=== PATIENT | female | born 1945 | race Caucasian/White ===

== ENCOUNTER → 2017-05-29 13:36 | Outpatient (CLI) | payer MEDICARE, SELFPAY ==
--- NOTE | 2017-05-29 | XR_ITS ---
Left foot Weightbearing Foot 3 Views HISTORY: ITS.REASON: LEFT FOOT PAIN ORDERING PHYSICIAN: Gabino Koo MD PATIENT AGE: 72 years COMPARISON: 09/26/2013 FINDINGS: Mild osteoarthritic changes are present at the first metatarsophalangeal joint with mild osteophyte formation. No fracture or dislocation. No lytic or blastic change. Normal alignment. IMPRESSION: Mild osteoarthritis of the first metatarsophalangeal joint otherwise negative foot with no significant change
== END ==
PROVIDERS: PCP Internal Medicine Adolescent Medicine; Visit Provider Internal Medicine Adolescent Medicine
DX: M79.672 Pain in left foot (principal)
CPT/HCPCS: 73630

== ENCOUNTER → 2017-10-04 06:42 | Outpatient (CLI) | payer MEDICARE, SELFPAY ==
--- NOTE | 2017-10-04 06:43 | CA_ITS ---
PROCEDURE: 2-D M-mode and color Doppler study INDICATIONS FOR THE TEST: Chest pain COPD Heart Murmur Tobacco Smoking Palpitations+ Fatigue Syncope Edema Hypertension+Diabetes Mellitus Rheumatic Fever SOB+ENRIQUEZ Obesity Hyperlipidemia+ Family History HD Additional History ABN EKG, BREAST CA PATIENT INFORMATION HEIGHT: 62 WEIGHT:112 GENDER: Female B/P:145/85 2-D/M-MODE INTERPRETATION: 2-D MEASUREMENTS OBSERVED VALUES IN CMS Right Ventricular Dimension (RVDd) 2.1 Interventricular Septum (Thickness)(IVsd) 1.1 Left Ventricular Internal Dimensions(LVIDd) 5.1 Left Ventricular Posterior Wall (Thickness)(LVPWd) 0.9 Aortic Root 3.2 Aortic Cusp Separation 1.9 Left Atrial Dimensions (LAD) 3.9 2D 1. Left atrium is mildly enlarged, left ventricle is normal size, left ventricle wall thickness is upper limit of the normal, there is preserved left ventricular systolic function, visually estimated ejection fraction 55% with no obvious regional wall motion abnormality. 2. The right atrium and right ventricle are normal size and contractility. 3. The aortic valve is minimally thickened and fibrosed. 4. The mitral and tricuspid valve are grossly normal. 5. The pulmonic valve is poorly visualized. 6. No significant pericardial effusion noted. DOPPLER INTERROGATION: Doppler interrogation of the aortic, mitral and tricuspid valvular presence of mild mitral and tricuspid regurgitation, tricuspid regurgitation jet velocity is insufficient for calculation of the right ventricular systolic pressure, diastolic parameters are inconclusive. Trace aortic insufficiency seen CONCLUSION: 1. Mildly enlarged left atrium, normal left ventricular size, visually estimated ejection fraction 55% with no obvious regional wall motion abnormality. Diastolic parameters are inconclusive. 2. Trace aortic, mild mitral and tricuspid regurgitation 3. No significant pericardial effusion noted.
--- NOTE | 2017-10-04 06:43 | NM_ITS ---
History and Indications: Coronary artery disease, hypertension, hyperlipidemia, family history, chest pain and shortness of breath. Procedure: Patient received a 0.4 mg of Lexiscan, resting heart rate was 60 bpm, resting blood pressure 185/99 scan maximum heart rate achieved was 91 bpm just less than 85% of the maximum predicted heart rate and a blood pressure was 142/85. With Lexiscan patient, shortness of breath. Electrocardiogram: Resting electrocardiogram showed sinus rhythm nonspecific ST-T changes, with Lexiscan would 0.[address] segment depression noted from the baseline EKG. The EKG portion of the Lexiscan Myoview is nondiagnostic secondary to baseline abnormal EKG. Cardiac stress and resting SPECT images: Cardiac stress and rest SPECT images were obtained using technetium 99 Myoview 30.7 mCi at stress and 10.4 mCi at rest. Gated SPECT further analysis of segmental wall motion and calculation of the ejection fraction also done. Cardiac stress and rest images show a mild reversible defect in the septal area with normal perfusion of the apex is likely secondary to soft tissue attenuation, rather than myocardial ischemia, computer derived ejection fraction is 55% with no obvious regional wall motion abnormality, right ventricle is normal size and contractility. Conclusion: 1. The EKG portion of the Lexiscan Myoview is nondiagnostic. 2. Mild reversible defect seen in the septal area likely secondary to soft tissue attenuation, computer derived ejection fraction is 55% with no obvious regional wall motion abnormality, right ventricle is normal size and contractility.
--- NOTE | 2017-10-04 07:10 | HMH.ITSHM ---
METOPROLOL RANEXA LOSARTAN PROTONIX ARIMIDEX LEXAPRO ALENDRONATE SODIUM ROSUVASTATIN ASA CETIRIZINE PRESERVISION CITRACAL CENTRUM
--- NOTE | 2017-10-04 09:57 | HMH.ITSHM ---
metoprolol ranexa losartan protonix arimidex lexapro alendronate sodium rosuvastatin aspirin ceterizine preservision citracil centrum
== END ==
PROVIDERS: Family Provider Internal Medicine Adolescent Medicine; PCP Internal Medicine Adolescent Medicine; Visit Provider Internal Medicine Cardiovascular Disease
DX: R94.31 Abnormal electrocardiogram [ECG] [EKG] (principal); R06.00 Dyspnea, unspecified
CPT/HCPCS: 78452; 93017; 93306; A9502; J2785

== ENCOUNTER → 2017-10-09 14:29 | Outpatient (CLI) | payer MEDICARE, SELFPAY | PROVIDERS: PCP Internal Medicine Adolescent Medicine; Visit Provider Internal Medicine Cardiovascular Disease | DX: R94.39 Abnormal result of other cardiovascular function study (principal); R06.83 Snoring; R53.83 Other fatigue; R06.00 Dyspnea, unspecified; I10 Essential (primary) hypertension; E78.5 Hyperlipidemia, unspecified; G47.33 Obstructive sleep apnea (adult) (pediatric) | CPT/HCPCS: G0399 ==

== ENCOUNTER → 2017-10-12 12:16 | Outpatient (CLI) | payer MEDICARE, SELFPAY ==
--- NOTE | 2017-10-12 12:19 | CI_ITS ---
Cerebrovascular Exam Indications: 780.4 Dizziness and giddiness. IMPRESSIONS 1. The bilateral vertebral arteries are patent with normal antegrade flow. 2. Study suggests less than 20% stenosis involving the right internal carotid artery. 3. Study suggests 20-49% stenosis involving the left internal carotid artery. 4. Tortuous carotid arteries seen bilaterally. Carotid duplex study. Complete study and Doppler flow study including spectral analysis, color and reyes scale imaging. Height: Height: 157.5cm. Height: 62in. Weight: Weight: 50.8kg. Weight: 111.8lb. Body mass index: BMI: 20.5kg/m^2. Body surface area: BSA: 1.49m^2. Location: Vascular laboratory. Patient status: Outpatient. Tables: Arterial flow: + +--------+--------+ Location V syrandy V ed + +--------+--------+ Right CCA - proximal 69.1cm/s 14.9cm/s + +--------+--------+ Right CCA - distal 81.7cm/s 25.9cm/s + +--------+--------+ Right ECA 45.7cm/s -------- + +--------+--------+ Right ICA - proximal 79.5cm/s 29cm/s + +--------+--------+ Right ICA - mid 50.2cm/s 21.9cm/s + +--------+--------+ Right ICA - distal 39.9cm/s 19.1cm/s + +--------+--------+ Right vertebral 30.7cm/s -------- + +--------+--------+ Left CCA - proximal 62.4cm/s 19.2cm/s + +--------+--------+ Left CCA - distal 67.3cm/s 22.6cm/s + +--------+--------+ Left ECA 53cm/s -------- + +--------+--------+ Left ICA - proximal 47.6cm/s 22.1cm/s + +--------+--------+ Left ICA - mid 63.6cm/s 28.6cm/s + +--------+--------+ Left ICA - distal 72.8cm/s 27.2cm/s + +--------+--------+ Left vertebral 39.3cm/s -------- + +--------+--------+ Velocity ratios: + + + + + + Right, V sys Right, V ed Left, V sys Left, V ed + + + + + + Max ICA/dist CCA 0.97 1.12 1.08 1.27 + + + + + + (Report amended ) Electronically signed by: Bhavik Cho [id number]
== END ==
PROVIDERS: PCP Internal Medicine Adolescent Medicine; Visit Provider Internal Medicine Cardiovascular Disease
DX: R42 Dizziness and giddiness (principal)
CPT/HCPCS: 93880

== ENCOUNTER → 2017-11-17 12:06 | Outpatient (CLI) | payer MEDICARE, SELFPAY ==
--- NOTE | 2017-11-17 12:14 | XR_ITS ---
XR ankle RT min 3V HISTORY: Fall with pain and swelling ITS.REASON: ANKLE PAIN/SPRAIN ORDERING PHYSICIAN: Gabino Koo MD PATIENT AGE: 72 years Comparison: None FINDINGS: Soft tissue swelling is present laterally. There is a faint transverse lucency involving the tip of the lateral malleolus consistent with a nondisplaced fracture. No other significant anomalies are evident. IMPRESSION: Nondisplaced fracture at the tip of the lateral malleolus
--- NOTE | 2017-11-17 12:14 | XR_ITS ---
XR shoulder RT min 2V HISTORY: ITS.REASON: PAIN ANTERIOR SHOULDER ORDERING PHYSICIAN: Gabino Koo MD PATIENT AGE: 72 years Comparison: None FINDINGS: No acute fracture or dislocation is evident. There is subacromial stenosis with some hypertrophic changes along the inferior aspect of the acromion. Mild osteoarthritic change of the glenohumeral joint. IMPRESSION: No acute finding. Osteoarthritic change with subacromial stenosis
== END ==
PROVIDERS: PCP Internal Medicine Adolescent Medicine; Visit Provider Internal Medicine Adolescent Medicine
DX: S93.401A Sprain of unspecified ligament of right ankle, initial encounter (principal); M25.511 Pain in right shoulder
CPT/HCPCS: 73030; 73610

== ENCOUNTER → 2017-11-23 13:51 | Outpatient (CLI) | payer MEDICARE, SELFPAY ==
--- NOTE | 2017-11-23 13:53 | XR_ITS ---
XR foot RT min 3V HISTORY: ITS.REASON: right foot pain/ swelling ORDERING PHYSICIAN: Zeyad Rivera MD PATIENT AGE: 72 years COMPARISON: None FINDINGS: Mild Hallux valgus with overlying soft tissue swelling and bunion formation of the first metatarsal. No fracture or dislocation. No lytic or blastic change. No significant arthritic change. IMPRESSION: Mild hallux valgus with bunion formation at the first MTP distally and overlying soft tissue swelling
== END ==
PROVIDERS: PCP Internal Medicine Adolescent Medicine; Visit Provider Orthopaedic Surgery
DX: M79.671 Pain in right foot (principal)
CPT/HCPCS: 73630

== ENCOUNTER → 2017-12-12 09:26 | Outpatient (CLI) | payer MEDICARE, SELFPAY ==
--- NOTE | 2017-12-12 09:49 | XR_ITS ---
XR ankle RT min 3V HISTORY: Follow-up fracture ITS.REASON: rt lateral malleolus fx/ out of cam walker ORDERING PHYSICIAN: Zeyad Rivera MD PATIENT AGE: 72 years Comparison: 11/17/2017 FINDINGS: Previously noted soft tissue swelling at the lateral malleolus as improved. Avulsion fractures tip of lateral malleolus once again noted unchanged. No other significant anomalies evident. IMPRESSION: No change avulsion fractures of the lateral malleolus with decrease in soft tissue swelling
== END ==
PROVIDERS: PCP Internal Medicine Adolescent Medicine; Visit Provider Orthopaedic Surgery
DX: S82.61XA Displaced fracture of lateral malleolus of right fibula, initial encounter for closed fracture (principal)
CPT/HCPCS: 73610

== ENCOUNTER → 2018-07-03 09:13 | Outpatient (CLI) | payer MEDICARE, SELFPAY ==
--- NOTE | 2018-07-03 09:56 | XR_ITS ---
XR wrist RT min 3V HISTORY pain following injury ITS.REASON: FALL ORDERING PHYSICIAN: Gabino Koo MD PATIENT AGE: 73 years Comparison: None FINDINGS: There are mild osteoarthritic changes of the first and second metacarpal carpal joint. A small calcific density is present along the dorsal aspect of the wrist consistent with an avulsion of the triquetrum. Faint lucency is present at the distal shaft of the ulna. This is a question clinical significance. Consider follow-up to confirm stability. IMPRESSION: Avulsion fracture of the triquetrum
--- NOTE | 2018-07-03 09:56 | XR_ITS ---
XR hand RT min 3V HISTORY: Pain following injury ITS.REASON: FALL ORDERING PHYSICIAN: Gabino Koo MD PATIENT AGE: 73 years COMPARISON: None FINDINGS: No fracture or dislocation. Mild osteoarthritic changes of the first and second metacarpal carpal joint. IMPRESSION: No acute finding
== END ==
PROVIDERS: PCP Internal Medicine Adolescent Medicine; Visit Provider Internal Medicine Adolescent Medicine
DX: M79.641 Pain in right hand (principal); M25.531 Pain in right wrist
CPT/HCPCS: 73110; 73130

== ENCOUNTER → 2018-10-26 12:47 | Outpatient (CLI) | payer MEDICARE, SELFPAY ==
--- NOTE | 2018-10-26 12:49 | MR_ITS ---
PROCEDURE: MR KNEE LT WO CON CLINICAL INDICATION: POSTERIOR KNEE PAIN Left knee pain with limited range of motion COMPARISON: No exams were available for comparison TECHNIQUE: Routine multiplanar multi echo sequences are performed without contrast FINDINGS: The cruciate ligaments, collateral ligaments, patellar tendon, and quadriceps tendon appear intact. There is a horizontal tear of the posterior horn of the medial meniscus with some meniscal maceration. The lateral meniscus has an unremarkable appearance. There are mild osteoarthritic changes involving all 3 compartments. The medial meniscus is somewhat extruded medially with loss of the medial joint space. There is a moderate size knee joint effusion mainly in the suprapatellar region. The patellar cartilage is preserved. No obvious bone bruise or bone marrow edema. IMPRESSION: Horizontal tear involves the posterior horn of the medial meniscus with mild meniscal maceration and mild osteoarthritic change with moderate-sized knee joint effusion Dictated by: Bhavik Cho MD 10/28/2018 12:37 Electronically signed by Bhavik Cho MD in [place] 10/28/2018 12:37
== END ==
PROVIDERS: PCP Internal Medicine Adolescent Medicine; Visit Provider Internal Medicine Adolescent Medicine
DX: M25.562 Pain in left knee (principal)
CPT/HCPCS: 73721

== ENCOUNTER 2018-11-07 13:05 | Outpatient (RCR) | payer MEDICARE, SELFPAY | END 2018-11-07 13:10 | disposition home or self-care (01) | LOC: PT 13:05 | PROVIDERS: Visit Provider Internal Medicine Adolescent Medicine | DX: M12.811 Other specific arthropathies, not elsewhere classified, right shoulder (principal); M25.511 Pain in right shoulder | CPT/HCPCS: 97010; 97014; 97033; 97035; 97110; 97163; G0283 ==

== ENCOUNTER 2018-11-07 14:00 | Outpatient (RCR) | payer MEDICARE, SELFPAY ==
--- NOTE | 2018-10-25 09:48 | HMH.PTOPEV ---
PT Outpatient Evaluation Rehab PT Outpatient Evaluation Start: 10/25/18 09:21 Freq: Status: Active Protocol: Document 10/25/18 09:26 FERNANDO (Rec: 10/25/18 09:48 WILFREDELOISE [id number]) Electronically Signed By Brendan Hummel, PT 10/25/18 09:26 Outpatient Therapy Subjective History Subjective History Patient is a 73 year old female presenting to outpatient PT with report of L posterolateral knee pain starting approximately 6 weeks ago of insidious onset. No recent diagnostics for the L knee to report. Pt reports radiating pain to L giraldo area. Hx of recent cardiac ablasion and breast cancer. No other comorbidities to report. Chief Complaint Pain Symptom Type Ache,Dull Symptoms Relieved By Rest/Positioning,Ice,OTC Meds Symptoms Aggravated By Standing,Physical Activity, Walking Prior Functional Limitations None Current Functional Limitations Housework,Standing,Squatting, Recreation Activity,Walking, Stairs Symptom Description Constant but Variable Level of pain today (0-10) 3 Pain scale - at its best (0-10) 2 Pain scale - at its worst (0-10) 6 Hip/Knee Eval Gait Observation General Gait Pattern Observation Decrease Weight Bear (L) Assistive Device Assistive Devices None / NA Palpation Tenderness left Knee Palpation Finding Tenderness Knee Palpation Overall Comment lateral joint line, posterlater knee 3/4 MMT Hip Flexion Strength Grade 4 Good Hip Abduction Strength Grade 4- Good- Hip Adduction Strength Grade 4- Good- Hip Extension Strength Grade 4- Good- Hip External Rotation Strength Grade 3+ Fair+ Hip Internal Rotation Strength Grade 3+ Fair+ Knee Extension Strength Grade 4 Good Knee Flexion Strength Grade 4 Good ROM Hip ROM Reason Not Measured Within Functional Limits Knee Extension Active Range of Motion ( -5 degrees) Knee Flexion Active Range of Motion ( 125 degrees) Special Tests Knee Anterior Drawer Test Negative Left Knee Acosta Test Positive Left Knee Anterior Jose Test Negative Left Knee Valgus Stress Test Negative Left Knee Varus Stress Test Negative Left Knee Rachel Test Negative Left Outpatient Therapy Assessment Impairments Problems/Impairmment
== END 2018-11-07 14:05 | disposition home or self-care (01) ==
LOC: PT 14:00
PROVIDERS: PCP Internal Medicine Adolescent Medicine; Visit Provider Internal Medicine Adolescent Medicine
DX: S86.892A Other injury of other muscle(s) and tendon(s) at lower leg level, left leg, initial encounter (principal); M25.562 Pain in left knee
CPT/HCPCS: 97010; 97014; 97033; 97035; 97110; 97163; G0283

== ENCOUNTER 2019-11-14 14:40 | Emergency (ER) | payer MEDICARE, SELFPAY ==
[2019-11-14 14:55] VITALS: BP 134/80; PULSE 79; RESP 16; TEMP 37.2; O2SAT 98; BMI 21.2
--- NOTE | 2019-11-14 15:04 | CT_ITS ---
PROCEDURE: CT HEAD/BRAIN WO CON CLINICAL INDICATION: DIZZINESS Dizziness and headache, ringing in right ear COMPARISON: No exams were available for comparison TECHNIQUE: Axial images obtained. All CT scans at the facility use one or more dose reduction, viz: automated exposure control, ma/kV adjustment per patient size (including targeted exams where dose is matched to indication, i.e. head), or iterative reconstruction technique. FINDINGS: No midline shift, mass effect, intracranial hemorrhage, hydrocephalus, or extra-axial fluid collection is evident. The calvarium has an unremarkable appearance. No mastoid effusion. No sinus air-fluid level. IMPRESSION: No acute intracranial finding Dictated by: Bhavik Cho MD 11/14/2019 15:53 Bhavik Cho MD in [place] 11/14/2019 15:53
--- NOTE | 2019-11-14 15:05 | CT_ITS ---
PROCEDURE: CT CHEST WO CON CLINICAL INDICATION: DIZZINESS COMPARISON: No exams were available for comparison TECHNIQUE: Axial images obtained with sagittal and coronal reformats. All CT scans at the facility use one or more dose reduction, viz: automated exposure control, ma/kV adjustment per patient size (including targeted exams where dose is matched to indication, i.e. head), or iterative reconstruction technique. FINDINGS: HEART AND MEDIASTINAL STRUCTURES: There are coronary artery calcifications. The heart size is normal. There is mild nonspecific thickening of the distal esophagus. LUNGS AND PLEURAL SPACES: There are atelectatic or fibrotic changes in the right upper lobe medially. A noncalcified 5 mm nodules present in the right lower lobe. There is some mild pleural thickening in the right posterior hemithorax nonspecific. 3 mm noncalcified nodules present in the central aspect of the right upper lobe there is a calcified granuloma in the left lower lobe. Atelectatic or fibrotic changes are present in the left lung base. An irregular opacity is present in the left upper lobe anteriorly possibly due to an area of scarring at 8 mm. Multiple surgical clips are present in the left axilla with postsurgical changes. BONY STRUCTURES: No acute bony abnormalities apparent. UPPER ABDOMEN: Unremarkable. ADDITIONAL FINDINGS: No other significant abnormalities. IMPRESSION: 1. No acute finding. 2. Nonspecific 5 mm right lower lobe nodule, 3 mm right upper lobe nodule and 8 mm nodular opacity in the left upper lobe. Recommend six-month follow-up. 3. Coronary artery calcifications Dictated by: Bhavik Cho MD 11/14/2019 16:11 Bhavik Cho MD in [place] 11/14/2019 16:11
--- NOTE | 2019-11-14 15:06 | CT_ITS ---
PROCEDURE: CT CERVICAL SPINE WO CON CLINICAL INDICATION: DIZZINESS Dizziness, headache, pain COMPARISON: No exams were available for comparison TECHNIQUE: Axial images obtained with sagittal and coronal reformats. All CT scans at the facility use one or more dose reduction, viz: automated exposure control, ma/kV adjustment per patient size (including targeted exams where dose is matched to indication, i.e. head), or iterative reconstruction technique. Axial spiral CT scanning performed of the cervical spine beginning at the base of the skull and continuing to the upper T-spine. 3-D multiplanar reconstruction with 3-D manipulation of volumetric data set in image rendering was completed by the radiologist and/or technologist with the supervision of the radiologist on independent workstation. FINDINGS: There is slight reversal of the cervical lordosis. Klippel-Feil deformity is present with fusion of C2-C3. C3-C4: Degenerative disc disease with mild endplate hypertrophic change and mild left lateral recess and foraminal narrowing. C4-C5: Mild left-sided uncovertebral hypertrophy with mild left foraminal narrowing. C5-C6: Degenerate disc disease with endplate hypertrophic change with bilateral foraminal narrowing left greater than right and minimal endplate hypertrophic change. C6-C7: Degenerate disc disease with bilateral foraminal narrowing right greater than left with endplate hypertrophic change. C7-T1: Unremarkable. Scattered small nodes are present in the neck. Lung apices are clear. IMPRESSION: Multilevel cervical spondylosis as detailed above. Klippel-Feil deformity C2-C3 Dictated by: Bhavik Cho MD 11/14/2019 15:56 Bhavik Cho MD in [place] 11/14/2019 15:56
--- NOTE | 2019-11-14 15:14 | ECG_ITS ---
APPROVED REPORT Exam: Resting ECG HR:74 bpm ECG Measurements Heart Rate 74 AXES FL 162 P 72 QRSd 88 QRS 27 QT 410 T -3 QTc 455 <Conclusion> Normal sinus rhythm Nonspecific ST abnormality Abnormal ECG Electronically signed by : Gabino Koo, 11/16/2019 06:27:11
[2019-11-14 15:27] LABS: Basophils % 0.1 % (0.1-2.0); Eosinophils # 0.1 K/mm3 (0.0-0.4); Eosinophils % 1.1 % (0.1-12.0); Hematocrit 39.4 % (37.0-47.0); Hemoglobin 13.4 g/dL (12.2-16.2); Lymphocytes # 0.9 K/mm3 (0.7-4.5); Lymphocytes % 20.6 % (10-50); Mean Corpuscular Volume 88.2 fl (81-99); Mean Platelet Volume 8.4 fl (7.4-10.4); Monocytes # 0.3 K/mm3 (0.1-1.0); Monocytes % 7.3 % (1.7-9.3); Neutrophils # 3.2 K/mm3 (1.8-7.8); Neutrophils % 70.9 % (37.0-80.0); Platelet Count 158 K/mm3 (142-424); Red Blood Count 4.47 M/mm3 (4.20-5.40); Red Cell Distribution Width 12.3 % (11.5-17.5); White Blood Count 4.5 K/mm3 (4.8-10.8)
[2019-11-14 15:28] LABS: Chloride 101 mmol/L (98-107)
[2019-11-14 15:29] LABS: Potassium 3.5 mmoL/L (3.5-5.1); Sodium 139 mmol/L (136-145)
[2019-11-14 15:32] LABS: Anion Gap 13.5 mEq/L (5-15); Blood Urea Nitrogen 14 mg/dl (7-17); Carbon Dioxide 28 mmol/L (22.0-30.0); Creatinine Clearance Estimated 41 mL/min (50-200); Estimated Glomerular Filt Rate 121 ml/min (>60); GFR (African American) 146 ML/MIN (>60); Glucose 103 mg/dl (74-100)
[2019-11-14 15:43] LABS: NT Pro Brain Natriuretic Pep. 65.7 pg/mL (0-125)
[2019-11-14 15:46] LABS: Microscopic, Urine URINE MICROSCOPIC (MICROSCOPIC)
[2019-11-14 15:48] LABS: Appearance,Urine CLEAR (Clear); Bilirubin,Urine Negative (Negative); Blood, Urine TRACE-I (Negative); Color,Urine YELLOW (Yellow); Glucose,Urine (UA) Negative (Negative); Ketones,Urine Negative (Negative); Leukocyte Esterase,Urine Negative (Negative); Nitrate,Urine Negative (Negative); PH,Urine 7.5 (5.0-8.5); Protein,Urine Negative (Negative); Specific Gravity, Urine 1.015 (1.005-1.030); Urobilinogen,Urine 0.2 EU/dl (0.2)
[2019-11-14 15:48] LABS: Troponin I < 0.01 ng/ml (0.00-0.034)
[2019-11-14 15:49] LABS: Erythrocyte Sedimentation Rate 10 mm/hr (0-30)
[2019-11-14 16:01] LABS: Bilirubin,Indirect 0.7 mg/dL (0.0-0.9); Bilirubin,Total 0.7 mg/dl (0.2-1.3); Bilirubin,Unconjugated 0.7 mg/dL (0.0-1.1)
[2019-11-14 16:02] LABS: Alanine Aminotransferase 23 U/L (12-78); Albumin Level 4.5 g/dl (3.5-5.0); Alkaline Phosphatase 39 U/L (38-126); Aspartate Amino Transferase 35 U/L (14-36); Total Protein,Serum 6.9 g/dl (6.3-8.2)
[2019-11-14 16:06] LABS: C-Reactive Protein 0.4 mg/L (0-4)
[2019-11-14 16:17] LABS: Bacteria,Urine Trace /lpf; WBC,Urine Occasional #/hpf (0-3)
[2019-11-14 16:36] VITALS: BP 123/84; PULSE 66
--- NOTE | 2019-11-14 17:23 | HMH.EDGENADL ---
ED Disposition Clinical Impression: Tinnitus aurium, Klippel-Feil syndrome Disposition: Home, Self-Care Condition on Discharge: Good Instructions: Dizziness, Nonvertigo Referrals: Gabino Koo MD [Primary Care Provider] - - Critical Care Critical Care Time: No Attestation: On 11/14/19, the high probability of a clinically significant, sudden or life threatening deterioration of the following system(s) required my full and direct attention, intervention and personal management. The time I documented below is in addition to time spent performing reported procedures but includes the following listed in this critical care notation. Medical Decision Making - Medical Records Medical records reviewed: Yes: I reviewed the patient's medical records. - Jose Inquiry Pt receiving controlled substance: No Vital Signs: 11/14/19 14:55 11/14/19 16:36 Temperature 99 F Temperature Source Oral Pulse Rate [Radial] 79 66 Respiratory Rate 16 Blood Pressure [Right Arm] 134/80 123/84 Blood Pressure Mean [Right Arm] 98 97 Blood Pressure Position [Right Arm] Sitting 02 Sat by Pulse Oximetry 98 Oxygen Delivery Method Room Air - Lab Data Lab results reviewed: Yes: I reviewed the patient's lab results. Lab Results 11/14/19 15:10: WBC 4.5 L, RBC 4.47, Hgb 13.4, Hct 39.4, MCV 88.2, MCH 30.0, MCHC 34.0, RDW 12.3, Plt Count 158, MPV 8.4, Neut % (Auto) 70.9, Lymph % (Auto) 20.6, Maury % (Auto) 7.3, Eos % (Auto) 1.1, Baso % (Auto) 0.1, Neut # (Auto) 3.2, Lymph # (Auto) 0.9, Maury # (Auto) 0.3, Eos # (Auto) 0.1, Baso # (Auto) 0.0 11/14/19 15:10: Sodium 139, Potassium 3.5, Chloride 101, Carbon Dioxide 28, Anion Gap 13.5, BUN 14, Creatinine 0.50 L, Estimated Creat Clear 41, Estimated GFR 121, Est GFR ( Amer) 146, Glucose 103 H, Calcium 10.0, Troponin I < 0.01 11/14/19 15:10: C-Reactive Protein 0.4, NT-Pro-B Natriuret Pep 65.7 09/24/20 15:10: ESR 10 11/14/19 15:10: Total Bilirubin 0.7, Direct Bilirubin 0.0, Conjugated Bilirubin 0.0, Indirect Bilirubin 0.7, Unconjugated Bilirubin 0.7, AST 35, ALT 23, Alkaline Phosphatase 39, Total Protein 6.9, Albumin 4.5 11/14/19 15:16: Urine Color Yellow, Urine Appearance Clear, Urine pH 7.5, Ur Specific [place] 1.015, Urine Protein Negative, Urine Glucose (UA) Negative, Urine Ketones Negative, Urine Blood Trace-i, Urine Nitrate Negative, Urine Bilirubin Negative, Urine Urobilinogen 0.2, Ur Leukocyte Esterase Negative, Urine WBC Occasional, Urine Bacteria Trace Result diagrams: 11/14/19 15:10 11/14/19 15:10 Orders (Tests/Meds): ORDERS Category Date Time Status Troponin I Q3H Lab 11/14/19 18:15 Ordered Troponin I Q3H Lab 11/14/19 21:15 Ordered - CT Data CT Scan: Head, C-Spine Time Received: 17:[address] Reviewed: Yes: I have reviewed the patient's CT results Preliminary Findings: Abnormal (Head CT is normal CT of cervical spine she has 2 fused vertebrae's.) General Adult HPI - General Chief complaint: Dizziness Stated complaint: SOA dizzy tingling under left arm Time Seen by Provider: 11/14/19 17:00 Mode of Arrival: Ambulatory Source of Information: Patient Limitations: No Limitations Description of Symptoms (Recalled from ER Triage Doc. by RN): TO ED PER [employer] CAR WITH MULTIPLE C/O STATES X 3.5 WEEKS SHE HAS HAD INTERMITTENT EPISODES OF DIZZINESS, WORSE WHEN SHE BENDS OVER, PULSATING HEADACHE OVER LT EYE, PAIN AND RINGING LT EAR, TINGLING LT ARM. STATES EPISODES ONLY LAST X SECONDS . PT WITH HX OF ABLATION DUE TO AFIB AND IS CURRENTLY WEARING A HEART MONITOR FROM [facility]. DENIES SOB, NAUSEA, VOMITING, CHEST PAIN OR HEART PALP. - History of Present Illness HPI narrative: 74-year-old female presents the emergency department with tinnitus sporadically. Patient states that she is felt lightheaded and had this ringing or buzzing in her ears going on for the last couple weeks off and on. She states here in the ED she feels much better however during these episode
[2019-11-14 17:33] VITALS: BP 122/74; PULSE 78; RESP 16; TEMP 36.6; O2SAT 98
== END 2019-11-14 17:41 | disposition home or self-care (01) ==
PROVIDERS: Emergency Provider Family Medicine; PCP Internal Medicine Adolescent Medicine
DX: H93.19 Tinnitus, unspecified ear (principal); Q76.1 Klippel-Feil syndrome; I10 Essential (primary) hypertension; E78.5 Hyperlipidemia, unspecified; K21.9 Gastro-esophageal reflux disease without esophagitis; Z87.891 Personal history of nicotine dependence; Z79.899 Other long term (current) drug therapy
CPT/HCPCS: 70450; 71250; 72125; 80048; 80076; 81001; 83880; 84484; 85025; 85651; 86140; 93005; 99283

== ENCOUNTER → 2019-11-26 16:49 | Outpatient (CLI) | payer MEDICARE, SELFPAY ==
--- NOTE | 2019-11-26 16:56 | MR_ITS ---
PROCEDURE: MR HEAD/BRAIN WO CON CLINICAL INDICATION: PULSATILE TINNITUS OF LEFT EAR intermittent hearing pulse/heart beat on lt side. dull headache and eye pain on lt side. symptoms x8wks. COMPARISON: MR [facility] MRI-BRAIN W/WO from 05/07/[address] HEAD/BRAIN WO CON from 11/14/2019 TECHNIQUE: Routine multiplanar multi echo sequences are performed without gadolinium enhancement. FINDINGS: No midline shift, mass effect, intracranial hemorrhage, or hydrocephalus is evident. No evidence of acute infarction. The cerebellopontine angle, cerebellum, and brainstem have an unremarkable appearance. Nonspecific slight increased periventricular T2 white matter signal intensity noted. There is mild ectasia the carotid vessels but no obvious aneurysm. No sinus air-fluid level. The pituitary, optic chiasm, corpus callosum, and craniocervical junction have an unremarkable appearance. There is partial fusion of C2-C3 vertebral body with mild degenerative disc disease at C3-C4 and C4-C5 with mild bulging discs. Minimal amount of fluid noted in the mastoid sinuses. IMPRESSION: 1. No acute intracranial findings. 2. Nonspecific nonacute findings as described above. Dictated by: Bhavik Cho MD 11/27/2019 12:33 Bhavik Cho MD in [place] 11/27/2019 12:33
--- NOTE | 2019-11-26 16:56 | MR_ITS ---
PROCEDURE: MR ANGIO HEAD WO CON CLINICAL INDICATION: PULSATILE TINNITUS OF LEFT EAR intermittent hearing pulse/heart beat on lt side. dull headache and eye pain on lt side. COMPARISON: CT CT HEAD/BRAIN WO CON from 11/14/2019 MR MR HEAD/BRAIN WO CON from 11/26/2019 TECHNIQUE: Routine multiplanar multi echo sequences are performed without gadolinium enhancement. FINDINGS: No aneurysm, arteriovenous malformation, or major intracranial occlusive process. 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 This is an anatomic variant. The carotid arteries are somewhat prominent in caliber. However, no aneurysmal dilatation is evident. The increased prominence may be due to the fact part of the posterior circulation is provided through the persistent posterior cerebral arteries which arise from the internal carotids.. Single-shot MRV shows no evidence of sagittal sinus thrombosis. IMPRESSION: 1. No acute finding. No evidence of aneurysm or arteriovenous malformation. 2. 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 Dictated by: Bhavik Cho MD 11/27/2019 12:44 Bhavik Cho MD in [place] 11/27/2019 12:44
== END ==
PROVIDERS: PCP Internal Medicine Adolescent Medicine; Visit Provider Internal Medicine Adolescent Medicine
DX: H93.A2 Pulsatile tinnitus, left ear (principal)
CPT/HCPCS: 70544; 70551

== ENCOUNTER → 2020-09-11 10:14 | Outpatient (CLI) | payer MEDICARE, SELFPAY ==
[2020-09-11 11:31] LABS: Chloride 103 mmol/L (98-107); Sodium 141 mmol/L (136-145)
[2020-09-11 11:34] LABS: Blood Urea Nitrogen 19 mg/dl (7-17); Estimated Glomerular Filt Rate 97 ml/min (>60); GFR (African American) 118 ML/MIN (>60)
[2020-09-11 11:35] LABS: Calcium 9.1 mg/dl (8.4-10.2); Carbon Dioxide 30 mmol/L (22.0-30.0); Glucose 106 mg/dl (74-100); Magnesium 1.9 mg/dl (1.6-2.3)
== END ==
PROVIDERS: Visit Provider Urology
DX: I10 Essential (primary) hypertension (principal); I48.3 Typical atrial flutter
CPT/HCPCS: 36415; 80048; 83735

== ENCOUNTER 2020-09-20 09:21 | Emergency (ER) | payer MEDICARE, SELFPAY ==
[2020-09-20 09:44] VITALS: BP 131/93; PULSE 75; RESP 18; TEMP 36.8; O2SAT 99; BMI 21.2
--- NOTE | 2020-09-20 10:42 | HMH.EDUTC ---
[facility] Disposition Clinical Impression: Exposure to COVID-19 virus Disposition: Home, Self-Care Condition on Discharge: Good Instructions: DI for COVID-19 (Suspected or Confirmed ), Preventing the Spread of Coronavirus Discharge Instructions Additional Instructions: Drink plenty of fluids. Take tylenol for pain or fever. Return if you begin to have difficulty breathing. Follow up with your regular doctor. GO TO THE ER FOR ANY WORSENING SYMPTOMS Referrals: Gabino Koo MD [Primary Care Provider] - Time of Disposition: 10:42 Medical Decision Making - Medical Records Medical records reviewed: No: I reviewed the patient's medical records. - Jose Inquiry Pt receiving controlled substance: No Vital Signs: 09/20/20 09:44 09/20/20 10:48 Temperature 98.2 F 98.2 F Temperature Source Oral Pulse Rate 74 Pulse Rate [Left] 75 Respiratory Rate 18 16 Blood Pressure 132/87 Blood Pressure [Right Arm] 131/93 H Blood Pressure Mean [Right Arm] 105 Blood Pressure Source [Right Arm] Automatic Cuff Blood Pressure Position [Right Arm] Sitting 02 Sat by Pulse Oximetry 99 Oxygen Delivery Method Room Air [facility] HPI - General Stated complaint: covid test Time Seen by Provider: 09/20/20 09:45 Mode of Arrival: Ambulatory Source of Information: Patient Limitations: No Limitations Description of Symptoms (Recalled from Triage Doc. by RN): patient was exposed to COvid on 09/13 at [facility], and is requesting getting tested to prevent possible further spread. HEENT Symptoms (Recalled from RN notes): No Resp Symptoms (Recalled from RN notes): No Skin Symptoms (Recalled from RN notes): No MS Symptoms (Recalled from RN notes): No Functional Status (Recalled from RN notes): na - History of Present Illness Provider Complaint: she is here to have a covid test after an exposure. she denies any symptoms so far. - Related Data Home Medications Medication Instructions Recorded Confirmed anastrozole 1 mg tablet 1 mg PO DAILY 09/28/17 11/14/19 escitalopram oxalate 5 mg tablet 5 mg PO DAILY 09/28/17 11/14/19 multivitamin 1 tab PO DAILY 09/28/17 11/14/19 pantoprazole 40 mg tablet,delayed 40 mg PO DAILY 09/28/17 11/14/19 release rosuvastatin 40 mg tablet 40 mg PO DAILY 09/28/17 11/14/19 cetirizine 10 mg tablet 10 mg PO DAILY tab 12/28/17 11/14/19 hydrochlorothiazide 12.5 mg tablet 12.5 mg PO DAILY 06/06/19 11/14/19 Losartan Potassium [Cozaar 50mg 50 mg PO QDAY 11/14/19 11/14/19 Tablets] rivaroxaban 20 mg tablet 20 mg PO DAILY tab 09/11/20 Allergies Allergy/AdvReac Type Severity Reaction Status Date / Time clopidogrel [CLOPIDOGREL] Allergy Unknown Verified 09/11/20 09:27 - Worker's Comp Is this a Worker's Comp case?: No [facility] History - Hepatitis A Screen Drug use history?: No High risk sexual behaviors?: No History of sexually transmitted infection?: No Currently employed?: No Childcare worker?: No Do you have indoor plumbing?: Yes Do you have electricity?: Yes Attestation statement:: This patient has been screened for Hepatitis A risk factors. I have reviewed the patient's past medical history: Yes Medical History: Reports:: Cancer, Gastroesophageal Reflux Disease(GERD), Hyperlipidemia, Hypertension Denies:: Diabetes Mellitus Type 1, Diabetes Mellitus Type 2, Internal Pacemaker, MRSA, Seizures Laterality Cases: Left: Lumpectomy Other Surgeries: Yes: Hernia Repair, Tubal Ligation, Other. No: Pacemaker Amputation: No Fractures: No - Social History Smoking Status: Former smoker #Yrs smoked (if former smoker): 15 Alcohol Intake: never Alcohol Intake Frequency:: holidays/special occasions only Substance Use Type: denies use Occupational Status: other Housing: other Household Members: none Family Hx:: Coronary Artery Disease, Heart Attack Comment: Father- of [place] at 77. Sister-Heart Problems in her 40's ROS Obtained: Yes All systems reviewed & no additional complaints -
[2020-09-20 10:48] VITALS: BP 132/87; PULSE 74; RESP 16; TEMP 36.8
== END 2020-09-20 10:48 | disposition home or self-care (01) ==
PROVIDERS: Emergency Provider Nurse Practitioner Family; PCP Internal Medicine Adolescent Medicine
DX: Z20.822 Contact with and (suspected) exposure to COVID-19 (principal); K21.9 Gastro-esophageal reflux disease without esophagitis; I10 Essential (primary) hypertension; E78.5 Hyperlipidemia, unspecified; Z87.891 Personal history of nicotine dependence
CPT/HCPCS: G0463; 99202; U0003

== ENCOUNTER 2020-09-26 16:42 | Emergency (ER) | payer MEDICARE, SELFPAY ==
[2020-09-26 16:43] VITALS: BP 140/78; PULSE 75; RESP 16; TEMP 36.6; O2SAT 99; BMI 21.2
--- NOTE | 2020-09-26 17:32 | HMH.EDUTC ---
[facility] [place] Disposition Clinical Impression: Exposure to COVID-19 virus Disposition: Home, Self-Care Condition on Discharge: Good Instructions: Preventing the Spread of Coronavirus Discharge Instructions Referrals: Gabino Koo MD [Primary Care Provider] - Time of Disposition: 17:38 Medical Decision Making - Jose Inquiry Pt receiving controlled substance: No Orders (Tests/Meds): ORDERS Category Date Time Status Covid-19 Nasal PCR ([facility]) Routine Lab 09/26/20 17:13 Received [facility] HPI - General Stated complaint: covid test Time Seen by Provider: 09/26/20 17:32 - History of Present Illness Provider Complaint: Patient was exposed to COVID19 5 days ago. She has been vaccinated and is asymptomatic, but needs COVID test before appt at [facility] on Monday. Onset (ago): day(s) (5) Relieving factors: none Exacerbating factors: none Associated symptoms: denies other symptoms Treatments prior to arrival: none - Related Data Home Medications Medication Instructions Recorded Confirmed anastrozole 1 mg tablet 1 mg PO DAILY 09/28/17 11/14/19 escitalopram oxalate 5 mg tablet 5 mg PO DAILY 09/28/17 11/14/19 multivitamin 1 tab PO DAILY 09/28/17 11/14/19 pantoprazole 40 mg tablet,delayed 40 mg PO DAILY 09/28/17 11/14/19 release rosuvastatin 40 mg tablet 40 mg PO DAILY 09/28/17 11/14/19 cetirizine 10 mg tablet 10 mg PO DAILY tab 12/28/17 11/14/19 hydrochlorothiazide 12.5 mg tablet 12.5 mg PO DAILY 06/06/19 11/14/19 Losartan Potassium [Cozaar 50mg 50 mg PO QDAY 11/14/19 11/14/19 Tablets] rivaroxaban 20 mg tablet 20 mg PO DAILY tab 09/11/20 Allergies Allergy/AdvReac Type Severity Reaction Status Date / Time clopidogrel [CLOPIDOGREL] Allergy Unknown Verified 09/11/20 09:27 [facility] History - Hepatitis A Screen Attestation statement:: This patient has been screened for Hepatitis A risk factors. I have reviewed the patient's past medical history: Yes Medical History: Reports:: Cancer, Gastroesophageal Reflux Disease(GERD), Hyperlipidemia, Hypertension Denies:: Diabetes Mellitus Type 1, Diabetes Mellitus Type 2, Internal Pacemaker, MRSA, Seizures Laterality Cases: Left: Lumpectomy Other Surgeries: Yes: Hernia Repair, Tubal Ligation, Other. No: Pacemaker Amputation: No Fractures: No - Social History Smoking Status: Former smoker #Yrs smoked (if former smoker): 15 Alcohol Intake: never Alcohol Intake Frequency:: holidays/special occasions only Substance Use Type: denies use Occupational Status: other Housing: other Household Members: none Family Hx:: Coronary Artery Disease, Heart Attack Comment: Father- of [place] at 77. Sister-Heart Problems in her 40's ROS Obtained: Yes All systems reviewed & no additional complaints Physical Exam - General General appearance: alert, in no apparent distress - Head Head exam: normocephalic - Eye Eye exam: Present: PERRL - ENT ENT exam: Present: normal oropharynx - Chest Chest inspection: Present: normal inspection - Respiratory Respiratory exam: Present: normal lung sounds bilaterally - Cardiovascular Cardiovascular exam: Present: regular rate, normal rhythm - Neurological Exam Neurological exam: Present: alert, oriented X3 - Psychiatric Psychiatric exam: Present: normal affect, normal mood - Skin Skin exam: Present: warm, dry, intact
[2020-09-26 17:44] VITALS: BP 140/78; PULSE 75; RESP 16; TEMP 36.6; O2SAT 99
== END 2020-09-26 17:45 | disposition home or self-care (01) ==
PROVIDERS: Emergency Provider Physician Assistant; PCP Internal Medicine Adolescent Medicine
DX: Z20.822 Contact with and (suspected) exposure to COVID-19 (principal); E78.5 Hyperlipidemia, unspecified; I10 Essential (primary) hypertension; Z87.891 Personal history of nicotine dependence
CPT/HCPCS: G0463; 99202; U0003

== ENCOUNTER → 2020-10-21 09:57 | Outpatient (CLI) | payer MEDICARE, SELFPAY ==
--- NOTE | 2020-10-21 10:02 | XR_ITS ---
PROCEDURE: XR FOOT RT MIN 3V CLINICAL INDICATION: RT FOOT PAIN COMPARISON: CR FTL3 FOOT-LT-3 VIEWS from 08/26/2013 CR FTL3 FOOT-LT-3 VIEWS from 09/26/2013 CR [id number] XR foot LT min 3V from 05/29/2017 CR [id number] XR foot RT min 3V from 11/23/2017 FINDINGS: No fracture or dislocation. No lytic or blastic change. There is normal mineralization. Hallux valgus with osteoarthritis of the 1st MTP joint and prominent bunion formation at the distal aspect of the 1st metatarsal. There is mild lateral subluxation of the proximal phalanx of the 1st digit at the MTP joint. Other findings:None. IMPRESSION: Hallux valgus with osteoarthritis of the 1st MTP joint and bunion formation at the distal aspect of the 1st metatarsal. Dictated by: Bhavik Cho MD 10/21/2020 14:57 Bhavik Cho MD in [place] 10/21/2020 14:57
== END ==
PROVIDERS: PCP Internal Medicine Adolescent Medicine; Visit Provider Internal Medicine Adolescent Medicine
DX: M79.671 Pain in right foot (principal)
CPT/HCPCS: 73630

== ENCOUNTER → 2021-02-17 11:06 | Outpatient (CLI) | payer MEDICARE, SELFPAY ==
--- NOTE | 2021-02-17 11:11 | XR_ITS ---
PROCEDURE: XR CHEST 2V CLINICAL HISTORY: DYSPNEA ON EXERTION The COMPARISON: CR CXR1 CHEST-PORTABLE from 01/08/[address] CHEST WO CON from 11/14/2019 FINDINGS: The cardiomediastinal silhouette and pulmonary vascularity are within normal limits. The lungs are clear without infiltrates, suspicious nodules, or pleural effusions. Status post left breast surgery with surgical clips in the left axilla. Mild degenerative changes thoracic spine IMPRESSION: No acute findings. Dictated by: Bhavik Cho MD 02/17/2021 12:57 Bhavik Cho MD in [place] 02/17/2021 12:57
== END ==
PROVIDERS: PCP Nurse Practitioner Family; Visit Provider Nurse Practitioner Family
DX: R06.09 Other forms of dyspnea (principal)
CPT/HCPCS: 71046

== ENCOUNTER → 2021-02-27 09:41 | Outpatient (CLI) | payer MEDICARE, SELFPAY ==
[2021-02-27 13:52] LABS: Blood Urea Nitrogen 17 mg/dl (7-17); Estimated Glomerular Filt Rate 120 ml/min (>60); GFR (African American) 145 ML/MIN (>60)
== END ==
PROVIDERS: Visit Provider Nurse Practitioner Family
DX: R91.1 Solitary pulmonary nodule (principal)
CPT/HCPCS: 36415; 82565; 84520

== ENCOUNTER → 2021-03-01 14:10 | Outpatient (CLI) | payer MEDICARE, SELFPAY ==
--- NOTE | 2021-03-01 14:14 | CT_ITS ---
FINAL REPORT CLINICAL HISTORY: follow up for lung nodule// isovue 370-75ml given// study done with and without contrast// Bun-17/ creatine 0.50, [id number] COMPARISON: November 14, 2019 FINDINGS: Axial images through the chest were performed by computed tomography without and with IV contrast. This study was performed with techniques to keep radiation doses as low as reasonably achievable, (ALARA). Individualized dose reduction techniques using automated exposure control or adjustment of mA and/or kV according to the patient's size were employed. FINDINGS: There is no axillary adenopathy. There is no hilar or mediastinal adenopathy. The heart size is normal. There is no pericardial or pleural effusion. Limited images of the upper abdomen are unremarkable. There is a 5 mm nodule in the right lower lobe on image 46 of series 4. There is a 3 mm right upper lobe nodule image 15 of series 4. There are several other less than 5 mm pulmonary nodules in both lungs which are stable. There are several calcified granulomas. There is mild scarring. There are postoperative changes in the left axilla. IMPRESSION: Stable nodules which are likely benign. If indicated additional follow-up in 12 months. Reviewed, Interpreted and Dictated by Kushal Bai III, MD Transcribed by Krys Wise Authenticated by Kushal Bai III, MD on 03/02/2021 08:20:59 AM [facility]
== END ==
PROVIDERS: PCP Nurse Practitioner Family; Visit Provider Nurse Practitioner Family
DX: R91.1 Solitary pulmonary nodule (principal)
CPT/HCPCS: 71270; Q9967

== ENCOUNTER → 2021-06-21 08:33 | Outpatient (CLI) | payer MEDICARE, SELFPAY ==
[2021-06-21 09:27] LABS: Basophils % 0.9 % (0.1-2.0); Eosinophils # 0.1 K/mm3 (0.0-0.4); Eosinophils % 1.8 % (0.1-12.0); Hematocrit 40.2 % (37.0-47.0); Hemoglobin 13.8 g/dL (12.2-16.2); Mean Corpuscular HGB Conc 34.3 g/dL (31.8-35.4); Mean Corpuscular Hemoglobin 31.3 pg (27.0-31.2); Mean Corpuscular Volume 91.4 fl (81-99); Monocytes # 0.3 K/mm3 (0.1-1.0); Monocytes % 6.9 % (1.7-9.3); Neutrophils % 68.5 % (37.0-80.0); Platelet Count 197 K/mm3 (142-424); Red Cell Distribution Width 13.1 % (11.5-17.5); White Blood Count 4.4 K/mm3 (4.8-10.8)
[2021-06-21 09:36] LABS: Alanine Aminotransferase 24 U/L (12-78); Albumin Level 4.4 g/dl (3.5-5.0); Albumin/Globulin Ratio 2.1 (1.1-1.8); Alkaline Phosphatase 38 U/L (38-126); Anion Gap 9.6 mEq/L (5-15); Aspartate Amino Transferase 31 U/L (14-36); Bilirubin,Total 0.7 mg/dl (0.2-1.3); Blood Urea Nitrogen 15 mg/dl (7-17); Calcium 9.2 mg/dl (8.4-10.2); Carbon Dioxide 31 mmol/L (22.0-30.0); Chloride 102 mmol/L (98-107); Cholesterol 146 mg/dl (140-200); Estimated Glomerular Filt Rate 97 ml/min (>60); GFR (African American) 118 ML/MIN (>60); Globulin 2.1 g/dL (1.3-3.2); Glucose 128 mg/dl (74-100); HDL Cholesterol 48 mg/dl (40-60); Potassium 3.6 mmoL/L (3.5-5.1); Sodium 139 mmol/L (136-145); Total Protein,Serum 6.5 g/dl (6.3-8.2); Triglycerides 94 mg/dl (30-150); VLDL Cholesterol 19 mg/dL (0-40)
[2021-06-21 09:47] LABS: Direct LDL Cholesterol 67.44 mg/dL (100-129)
[2021-06-21 10:07] LABS: Thyroid Stimulating Hormone 2.37 uIU/mL (0.465-4.68)
[2021-06-21 10:26] LABS: Vitamin B12 322 pg/mL (239-931)
== END ==
PROVIDERS: Visit Provider Nurse Practitioner Family
DX: R10.13 Epigastric pain (principal); I48.0 Paroxysmal atrial fibrillation; E78.5 Hyperlipidemia, unspecified
CPT/HCPCS: 36415; 80053; 80061; 82607; 84443; 85025

== ENCOUNTER → 2021-06-23 07:46 | Outpatient (CLI) | payer MEDICARE, SELFPAY ==
--- NOTE | 2021-06-23 07:52 | FL_ITS ---
FINAL REPORT CLINICAL HISTORY: EPIGASTRIC ABD PAIN X 6 MONTHS...2.11 FLUORO TIME FINDINGS: AIR CONTRAST UPPER GI HISTORY: Epigastric abdominal pain, twin sister has ulcers, gastroesophageal reflux. TECHNIQUE: Patient ingested thick and thin barium contrast. Effervescent crystals were also administered. Spot and overhead films were performed. A total of 40 images were saved. FINDINGS: The esophagus demonstrates no morphologic abnormalities. No mucosal defects are seen and motility appears normal. The stomach is of normal size, shape and position. No gastric filling defects are seen. The duodenal bulb and sweep appear unremarkable. There is gastroesophageal reflux to the level of the aortic arch. FLUOROSCOPY TIME: 2 minutes 11 seconds. IMPRESSION: Gastroesophageal reflux. Otherwise, unremarkable upper GI series. Reviewed, Interpreted and Dictated by Kushal Bai III, MD Transcribed by Vani Diego PA-C Authenticated by Kushal Bai III, MD on 06/23/2021 11:31:36 AM [facility]
== END ==
PROVIDERS: PCP Nurse Practitioner Family; Visit Provider Nurse Practitioner Family
DX: R10.13 Epigastric pain (principal)
CPT/HCPCS: 74246

== ENCOUNTER 2023-07-20 08:56 | Day surgery (SDC) | payer MEDICARE, SELFPAY ==
[2023-07-20] VITALS (12 sets, daily range): BP systolic 132–154; BP diastolic 70–83; PULSE 60–80; RESP 15–18; TEMP 36.6; O2SAT 94–97; BMI 21.7
--- NOTE | 2023-07-20 07:17 | IR_ITS ---
APPROVED REPORT Patient Location: Outpatient PROCEDURES Left heart catheterization Left ventriculogram Selective coronary angiogram INDICATION Known coronary artery disease, Worsening angina pectoris, Informed consent was obtained prior to the procedure. COMPLICATIONS None Estimated Blood Loss: Less than 10 mls TECHNIQUE One percent lidocaine used to anesthetize the right anterior aspect of the wrist. The right radial artery was accessed via the Seldinger technique. A 6 Icelandic sheath was placed in the right radial artery. 2.5 mg of Verapamil, 800 mcg of nitroglycerin, 1mg Lidocaine and 5000 U Heparin were given through the arterial sheath. The papa catheter was also used to perform left heart catheterization, left ventriculogram and selective coronary angiogram. At the end of the procedure the sheath was removed good hemostasis was achieved using Traclet band, patient was transferred to the postop holding area in stable condition. ANGIOGRAPHIC RESULTS The left main artery Normal The left anterior descending artery Is proximally normal and has a mid vessel smooth 30% stenosis followed by an additional 30% stenosis in the proximal portion of the distal segment. The circumflex artery Is codominant and gives rise to a large ramus intermedius which is widely patent with proximal eccentric 30 to 40% stenosis the terminal obtuse marginal artery has a proximal 40% stenosis and is 1.5 to 2 mm in diameter The right coronary artery Is a dominant vessel and has proximal and mid vessel 30% stenoses with an additional mid vessel 40% concentric stenosis with additional distal 30% stenosis The ZELAYA ventriculogram reveals Normal 65% The left ventricular end-diastolic pressure 10 mmHg IMPRESSION Coronary artery disease as described above all of which is best managed medically Normal ejection fraction Normal left ventricular end-diastolic pressure PLAN 1. Continue medical management. None of these vessels warrant revascularization at this time and are unlikely to be producing angina 2. LDL less than 55 to proceed with high intensity statin Electronically signed by : Jeffrey Jefferson MD 07/20/2023 12:06:33
[2023-07-20 09:53] LABS: Chloride 102 mmol/L (98-107)
[2023-07-20 09:54] LABS: Potassium 3.5 mmoL/L (3.5-5.1); Sodium 139 mmol/L (136-145)
[2023-07-20 09:55] LABS: Basophils % 0.3 % (0.1-2.0); Eosinophils % 0.7 % (0.1-12.0); Hematocrit 41.3 % (37.0-47.0); Hemoglobin 13.9 g/dL (12.2-16.2); Lymphocytes # 0.8 K/mm3 (0.7-4.5); Lymphocytes % 17.1 % (10-50); Mean Corpuscular HGB Conc 33.7 g/dL (31.8-35.4); Mean Corpuscular Hemoglobin 30.8 pg (27.0-31.2); Mean Corpuscular Volume 91.6 fl (81-99); Mean Platelet Volume 9.4 fl (7.4-10.4); Monocytes # 0.3 K/mm3 (0.1-1.0); Monocytes % 6.9 % (1.7-9.3); Neutrophils # 3.5 K/mm3 (1.8-7.8); Neutrophils % 74.9 % (37.0-80.0); Platelet Count 211 K/mm3 (142-424); Red Cell Distribution Width 13.3 % (11.5-17.5); White Blood Count 4.7 K/mm3 (4.8-10.8)
[2023-07-20 09:56] LABS: Blood Urea Nitrogen 21 mg/dl (7-17); Creatinine Clearance Estimated 37 mL/min (50-200); Estimated Glomerular Filt Rate 81 ml/min (>60); GFR (African American) 98 ML/MIN (>60)
[2023-07-20 09:57] LABS: Anion Gap 12.5 mEq/L (5-15); Carbon Dioxide 28 mmol/L (22.0-30.0); Glucose 108 mg/dl (74-100)
[2023-07-20] MEDS: LIDOCAINE 1% 10ML MDV 20 ML IJ (11:27)
[2023-07-20] MEDS: HEPARIN 1,000 UNITS/500ML NS (CATH LAB) 3000 UNIT IV (11:27)
[2023-07-20] MEDS: VERAPAMIL 2.5MG/ML 2ML VIAL 2.5 MG IV (11:28)
[2023-07-20] MEDS: diphenhydrAMINE 50MG/ML VIAL 50 MG IV (11:28)
[2023-07-20] MEDS: 0.9 % SODIUM CHLORIDE 500 ML 25 ML IV (11:28)
[2023-07-20] MEDS: HEPARIN 1,000 UNITS/ML 10ML VIAL (CATH LAB) 10000 UNIT IV (11:28)
[2023-07-20] MEDS: NITROGLYCERIN 800MCG/8ML SYR (CATH LAB) 800 MCG IA (11:28)
[2023-07-20] MEDS: FENTANYL 100MCG/2ML VIAL 50 MCG IV (12:16)
[2023-07-20] MEDS: MIDAZOLAM HCL 1MG/1ML 5ML VIAL 1 MG IV (12:16)
[2023-07-20] MEDS: IOPAMIDOL-370 (76%);100ML BOTTLE 50 ML IV (14:38)
== END 2023-07-20 15:13 | disposition home or self-care (01) ==
PROVIDERS: PCP Nurse Practitioner Family; Visit Provider Internal Medicine
DX: R07.89 Other chest pain (principal); R68.84 Jaw pain; I25.118 Atherosclerotic heart disease of native coronary artery with other forms of angina pectoris; Z79.899 Other long term (current) drug therapy; I65.23 Occlusion and stenosis of bilateral carotid arteries; Z79.01 Long term (current) use of anticoagulants
CPT/HCPCS: 80048; 85025; 93458; 99152; C1725; C1769; J1644; Q9967

== ENCOUNTER 2023-08-07 10:55 | Outpatient (CLI) | payer MEDICARE, SELFPAY ==
--- NOTE | 2023-08-07 10:55 | CA_ITS ---
FINAL REPORT CLINICAL HISTORY: AJITH, dizziness, HTN, HLD COMPARISON: None FINDINGS: RIGHT CAROTID: CCA PSV -62 cm/sec ICA PSV -105 cm/sec ICA/CCA PSV ratio -1.7. Comments: Mild plaque disease is noted. LEFTCAROTID: CCA PSV -69. cm/sec ICA PSV -76. cm/sec ICA/CCA PSV ratio -1.2. Comments: Mild plaque disease is noted. Antegrade flow is seen within the vertebral arteries. IMPRESSION: Carotid stenosis classified less than 50% Reviewed, Interpreted and Dictated by Cecil Coronel MD Transcribed by Jennie Chao Authenticated and [facility]
== END 2023-08-07 23:59 | disposition home or self-care (01) ==
LOC: RT 10:55
PROVIDERS: PCP Nurse Practitioner Family; Visit Provider Physician Assistant
DX: I65.23 Occlusion and stenosis of bilateral carotid arteries (principal); R07.89 Other chest pain; R68.84 Jaw pain; I25.10 Atherosclerotic heart disease of native coronary artery without angina pectoris; Z87.891 Personal history of nicotine dependence
CPT/HCPCS: 93880

== ENCOUNTER 2023-09-30 08:45 | Outpatient (CLI) | payer MEDICARE, SELFPAY ==
[2023-09-30 09:07] LABS: Basophils % 0.6 % (0.1-2.0); Eosinophils # 0.1 K/mm3 (0.0-0.4); Eosinophils % 1.7 % (0.1-12.0); Hematocrit 39.4 % (37.0-47.0); Hemoglobin 13.7 g/dL (12.2-16.2); Lymphocytes # 0.9 K/mm3 (0.7-4.5); Lymphocytes % 21.1 % (10-50); Mean Corpuscular HGB Conc 34.7 g/dL (31.8-35.4); Mean Corpuscular Hemoglobin 32.7 pg (27.0-31.2); Mean Corpuscular Volume 94.2 fl (81-99); Mean Platelet Volume 9.3 fl (7.4-10.4); Monocytes # 0.2 K/mm3 (0.1-1.0); Monocytes % 5.1 % (1.7-9.3); Neutrophils % 71.4 % (37.0-80.0); Platelet Count 164 K/mm3 (142-424); Red Blood Count 4.19 M/mm3 (4.20-5.40); Red Cell Distribution Width 13.4 % (11.5-17.5); White Blood Count 4.2 K/mm3 (4.8-10.8)
[2023-09-30 10:07] LABS: Albumin Level 4.2 g/dl (3.5-5.0); Chloride 105 mmol/L (98-107)
[2023-09-30 10:08] LABS: Potassium 3.6 mmoL/L (3.5-5.1); Sodium 141 mmol/L (136-145)
[2023-09-30 10:10] LABS: Alanine Aminotransferase 24 U/L (12-78); Anion Gap 8.6 mEq/L (5-15); Aspartate Amino Transferase 34 U/L (14-36); Bilirubin,Unconjugated 0.6 mg/dL (0.0-1.1); Blood Urea Nitrogen 20 mg/dl (7-17); Carbon Dioxide 31 mmol/L (22.0-30.0); Estimated Glomerular Filt Rate 97 ml/min (>60); GFR (African American) 117 ML/MIN (>60); Total Protein,Serum 6.5 g/dl (6.3-8.2)
[2023-09-30 10:11] LABS: Alkaline Phosphatase 37 U/L (38-126); Bilirubin,Direct 0.2 mg/dl (0.0-0.4); Bilirubin,Indirect 0.6 mg/dL (0.0-0.9); Bilirubin,Total 0.8 mg/dl (0.2-1.3); Chol/HDL Ratio 2.3 (1-3.5); Cholesterol 121 mg/dl (140-200); Glucose 104 mg/dl (74-100); HDL Cholesterol 52 mg/dl (40-60); Triglycerides 77 mg/dl (30-150); VLDL Cholesterol 15 mg/dL (0-40)
[2023-09-30 10:22] LABS: Direct LDL Cholesterol 48.67 mg/dL (100-129)
[2023-09-30 10:28] LABS: Free T4 (Free Thyroxine) 0.96 ng/dl (0.78-2.19)
[2023-09-30 10:42] LABS: Thyroid Stimulating Hormone 4.36 uIU/mL (0.465-4.68)
== END 2023-09-30 23:59 | disposition home or self-care (01) ==
LOC: LAB 08:47
PROVIDERS: PCP Nurse Practitioner Family; Visit Provider Nurse Practitioner Family
DX: I10 Essential (primary) hypertension (principal); I25.10 Atherosclerotic heart disease of native coronary artery without angina pectoris; I65.23 Occlusion and stenosis of bilateral carotid arteries; Z79.01 Long term (current) use of anticoagulants; E78.49 Other hyperlipidemia
CPT/HCPCS: 36415; 80048; 80061; 80076; 83735; 84439; 84443; 85025

== ENCOUNTER 2024-02-09 08:51 | Outpatient (CLI) | payer MEDICARE, SELFPAY ==
--- NOTE | 2024-02-09 08:55 | XR_ITS ---
FINAL REPORT TECHNIQUE: Bone densitometry calculations of the lumbar spine and left hip were obtained. CLINICAL HISTORY: SCREENING COMPARISON: None FINDINGS: Using L1-4, the bone mineral density of the spine is 0.935 g/cm2, corresponding to T-score of -1.0. Using the left hip, the bone mineral density of the femoral neck is 0.648 g/cm2, corresponding to a T-score of -1.8. NOTE: T-score: Standard deviation compared with peak bone mass of young adult mean. *Following the recommendations of the International Society of Bone densitometry, classification of hip BMD is based on the lower of two T-scores; total hip or femoral neck. IMPRESSION: Diminished bone mineral density of the left hip and lumbar spine consistent with osteopenia. Reviewed, Interpreted and Dictated by Cecil Coronel MD Transcribed by Jennie Chao Authenticated and [facility]
== END 2024-02-09 23:59 | disposition home or self-care (01) ==
LOC: RAD 08:53
PROVIDERS: PCP Nurse Practitioner Family; Visit Provider Nurse Practitioner Family
DX: Z78.0 Asymptomatic menopausal state (principal)
CPT/HCPCS: 77080

== ENCOUNTER 2024-10-01 10:32 | Outpatient (CLI) | payer MEDICARE, SELFPAY ==
--- OUTSIDE RECORDS SUMMARY | 2024-10-01 10:46 | XMS_ITS | Encounter Summary ---
Author Organization [place] [address] Care Team Providers Care Cooker Process Cheese Name Role Phone Gabino Koo MD Primary Care Provider [phone] Joel Man PA-C Unavailable [phone] Encounter Details Date Type Department Care Team (Late st Contact Info) Description 12/04/2017 Orders Only [facility] [address] [facility] [address] [place] [address] Navi Smith MD [address] [place], [place] [id number] Social History Tobacco Use Types Packs/Day Years Used Date Smoking Tobacco: Former Cigarettes Smokeless Tobacco: Never Alcohol Use Standard Drinks/Week Comments Yes 0 (1 standard drink = 0.6 oz pure alcohol) rare intake, holidays & special occasions only Comments No Sex and Gender Information Value Date Recorded Sex Assigned at Not on file Legal Sex Female 11:15 AM EDT Gender Identity Not on file Sexual Orientation Not on file Occupation Industry Job Start Date Job End Date retired Not on file Not on file Not on file documented as of this encounter Plan of Treatment Not on file documented as of this encounter Procedures Procedure Name Priority Date/Time Associated Diagnosis Comments EP LAB RECORDINGS Routine 12/04/2017 9:53 AM EDT documented in this encounter Results * EP LAB RECORDINGS (12/04/2017 9:53 AM EDT) 12/04/2017 9:53 AM EDT us Navi Smith MD CARDIAC CATH ORDERABLES Final Result Performing Organization Address City/State/[facility] Co de Phone Number [facility] [address] [place] [address] documented in this encounter Visit Diagnoses Not on filedocumented in this encounter Additional Health Concerns Assessment Noted Time A fall risk assessment has been complete d for the patient 11/21/2017 9:32 AM EDT documented as of this encounter Care Teams Cooker Process Cheese Relationship Specialty Start Date End Date Gabino Koo MD [facility] [address] [place] [id number] PCP - General Internal Medicine-Adolescent Medicine 11/09/17 Joel Man PA-C [facility] [address] [place] [address] Physician Deployment Technician 11/09/17 documented as of this encounter
--- OUTSIDE RECORDS SUMMARY | 2024-10-01 10:46 | XMS_ITS | Encounter Summary ---
Author Organization Healthcare Address [address] [id number] Care Team Providers Care Circus Agent Name Role Phone Gabino Koo MD Primary Care Provider [phone] Encounter Details Date Type Department Care Team (Late Contact Info) Description 08/16/2024 Telephone [facility] Audiology [address] [place] [address] Sharmila Baeza ```````````HOSP. OBSTETRICS, NURSERY Social History Tobacco Use Types Packs/Day Years Used Date Smoking Tobacco: Never Assessed Comments Unknown Sex and Gender Information Value Date Recorded Sex Assigned at Not on file Legal Sex Female 8:28 PM EDT Gender Identity Not on file Sexual Orientation Not on file documented as of this encounter Miscellaneous Notes * Telephone Encounter - Sharmila Baeza - 08/16/2024 8:36 AM EDT Scheduled patient for a C appointment. Reminder letter sent out documented in this encounter Plan of Treatment Upcoming Encounters Date Type Department Care Team (Late Contact Info) Description 11/19/2024 9:30 AM EDT Office Visit [facility] Audiology [address] [place] [address] Concepcion Michael, AuD [address] [place] [address] documented as of this encounter Visit Diagnoses Not on filedocumented in this encounter Additional Health Concerns Assessment Noted Time A Body Mass Index follow-up plan has been documented for the patient 05/16/2024 11:29 AM EDT documented as of this encounter Care Teams Circus Agent Relationship Specialty Start Date End Date Gabino Koo MD [address] [place] [address] PCP - General 07/03/20 documented as of this encounter
--- OUTSIDE RECORDS SUMMARY | 2024-10-01 10:46 | XMS_ITS | Encounter Summary ---
Author Organization Healthcare Address [address] [place] [address] Care Team Providers Care Fruit Express Agent Name Role Phone Gabino Koo MD Primary Care Provider [phone] Reason for Referral * Consultation (Routine) - Closed Specialty Diagnoses / Procedures Referred By Elsa edwards Referred To Contact Audiology Diagnoses Bilateral hearing loss, unspecified hearing loss type Erica Vaughn, MANAGER CUSTOMER SERVICE [address] [address] Phone: tel: fax: Luci Magdaleno, PhD [address] [facility] [address] [place] [address] Phone: tel: fax: Referral ID Status Reason Start Date Expiration Date V isits Requested Visits Authorized [id number] Closed Specialty Services Required 01/30/2023 07/31/2024 1 1 Encounter Details Date Type Department Care Team ([facility] Contact Info) Description 01/30/2023 [facility] [address] [place] [address] Erica Vaughn, MANAGER CUSTOMER SERVICE [address] [id number] Bilateral hearing loss, unspecified hearing loss type (Primary Dx) Social History Tobacco Use Types Packs/Day Years Used Date Smoking Tobacco: Never Assessed Comments Unknown Sex and Gender Information Value Date Recorded Sex Assigned at Not on file Legal Sex Female 8:28 PM EDT Gender Identity Not on file Sexual Orientation Not on file documented as of this encounter Plan of Treatment Upcoming Encounters Date Type Department Care Team (Late st Contact Info) Description 11/19/2024 9:30 AM EDT Office Visit [facility] Audiology [address] [place] [address] Concepcion Michael, AuD [address] [place] [address] Scheduled Referrals Name Type Priority Associated Diagnoses Orde r Schedule Ambulatory Referral to Audiology Outpatient Referral Routine Bilateral hearing loss, unspecified hearing loss type Ordered: 01/30/2023 documented as of this encounter Visit Diagnoses Diagnosis Bilateral hearing loss, unspecified hearing loss type- Primary documented in this encounter Care Teams Fruit Express Agent Relationship Specialty Start Date End Date Gabino Koo MD [address] [place] [address] PCP - General 07/03/20 documented as of this encounter
--- OUTSIDE RECORDS SUMMARY | 2024-10-01 10:46 | XMS_ITS | Clinical Summary ---
Author Organization Healthcare Address [address] [place] [address] Care Team Providers Care Blue Line Hanger Name Role Phone Gabino Koo MD Primary Care Provider Encounters Date Type Department Care Team Description 08/16/2024 Telephone [facility] Audiology [address] [place] [address] Sharmila Baeza from Last 3 Months Social History Tobacco Use Types Packs/Day Years Used Date Smoking Tobacco: Never Assessed Comments Unknown Sex and Gender Information Value Date Recorded Sex Assigned at Not on file Legal Sex Female 8:28 PM EDT Gender Identity Not on file Sexual Orientation Not on file Last Filed Vital Signs Vital Sign Reading Time Taken Comments Blood Pressure 142/89 12/11/2019 11:12 AM EDT Pulse 76 12/11/2019 11:12 AM EDT Temperature - - Respiratory Rate - - Oxygen Saturation - - Inhaled Oxygen Concentration - - Weight 54 kg (118 lb 15.7 oz) 12/11/2019 11:12 A M EDT Height 157.5 cm (5' 2 ) 12/11/2019 11:12 AM EDT Body Mass Index 21.76 12/11/2019 11:12 AM EDT Plan of Treatment Upcoming Encounters Date Type Department Care Team (Late st Contact Info) Description 11/19/2024 9:30 AM EDT Office Visit [facility] Audiology [address] [place] [address] Concepcion Michael, AuD [address] [place] [address] Health Maintenance Due Date Last Done Comments [facility]-Bone Density Scan 1945 [facility]-Depression Screening 1945 [facility]-Hepatitis C Screening 1945 [facility]-Medicare Annual Wellness (AWV) 1945 [facility]-/Child/Adol SDOH Screenings 1945 [facility]- SDOH Screenings 1963 [facility]-Adult SDOH Screenings 1963 [id number] Vaccine (2023- season) 2023 12/29/2021, 07/12/2021, 12/09/2020, Additional history exists [facility]-Influenza Vaccine (#1) 10/21/202411/05, 11/23/2022, 02/17/2021, Additional history exists [facility]-DTaP,Tdap,and Td Vaccines (3 - Td or Tdap) 08/01/2033 08/02/2023, 10/06/2022, 04/23/1996 [facility]-Hepatitis A Vaccines Aged Out 08/01/2012, 08/2011 No longer eligible based on patient's age to complete this topic [facility]-Zoster Vaccines Completed 07/03/2020, [facility]-Pneumococcal Vaccine: 50+ Years Completed 10/06/2022, 10/17/2019 [facility]-RSV Vaccine: 60+ Years or Completed 01/30/2024 HPV Vaccines Aged Out No longer eligi ble based on patient's age to complete this topic [facility]-HIB Vaccines Aged Out No longer e ligible based on patient's age to complete this topic [facility]-IPV Vaccines Aged Out No longer e ligible based on patient's age to complete this topic [facility]-Rotavirus Vaccines Aged Out No lo nger eligible based on patient's age to complete this topic Insurance MEDICARE [facility] Care Teams Blue Line Hanger Relationship Specialty Start Date End Date Gabino Koo MD [address] [place] [address] PCP - General 07/03/20
--- OUTSIDE RECORDS SUMMARY | 2024-10-01 10:46 | XMS_ITS | Clinical Summary ---
Author Organization [facility] Address [address] [place] [address] Phone Care Team Providers Care Census Enumerator Name Role Phone Gabino Koo MD Primary Care Provider + [phone] Joel Man PA-C Unavailable [phone] Allergies Active Allergy Reactions Criticality Noted Date Comments Clopidogrel Shortness Of Breath,Rash 11/09/2017 Medications metoprolol succinate ER (TOPROL-XL) 100 mg Oral Tablet Sustained Release 24 hr Take 100 mg by mouth 2 times daily. Active losartan-hydroch lorothiazide (HYZAAR) 50-12.5 mg Oral Tablet Take 1 Tab by mouth daily. Active anastrozole (ARIMIDEX) 1 mg Oral Tablet Take 1 mg by mouth daily. Active escitalopram oxalate (LEXAPRO) 5 mg Oral Tablet Take by mouth daily. Active pantoprazole (PROTONIX) 40 mg Oral Tablet, Delayed Release (E.C.) Take 40 mg by mouth daily. Active cetirizine (ZYRTEC) 10 mg Oral Tablet Take 10 mg by mouth daily. Active rosuvastatin (CRESTOR) 40 mg Oral Tablet Take 40 mg by mouth daily. Active CALCIUM ORAL Take 2 Tabs by mouth daily. Active MULTIVITAMIN ORAL Take 1 Tab by mouth daily. Active vit C/E/Zn/coppr/lut ein/zeaxan (PRESERVISION AREDS-2 ORAL) Take 1 Tab by mouth 2 times daily. Active rivaroxaban (XARELTO) 20 mg Oral Tablet Take 1 Tab by mouth daily. 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 Essential hypertension Hyperlipidemia Carotid artery stenosis FPC (current) use of anticoagulants Surgical History Surgery Date Site/Laterality Comments BREAST LUMPECTOMY Left HERNIA REPAIR APPENDECTOMY TONSILLECTOMY LAPAROSCOPY FRACTURE SURGERY Left lower arm fracture repair EYE SURGERY Bilateral cataracts with lense implant , victrectomy Medical History Medical History Date Comments Atrial flutter (HCC) Atherosclerosis of saxman coronary artery withou t angina pectoris Essential hypertension Hyperlipidemia Carotid artery stenosis FPC (current) use of anticoagulants Typical atrial flutter (HCC) GERD (gastroesophageal reflux disease) Breast cancer (HCC) Cardiac dysrhythmia Family History Medical History Relation Name Comments Heart Disease Father Heart Disease Mother Early Paternal Aunt Early Sister Heart Disease Sister Stroke Sister Relation Name Status Comments Father Mother Paternal Aunt Sister Social History Tobacco Use Types Packs/Day Years [...] file Not on file Not on file Obstetrics History Para Term AB IAB SAB Ectopic Multiple Livin g Live Births 3 3 Date Outcome GA Total Labor Labor/2nd/3rd Weight Sex Type Anes PTL Azucena A1 A5 Name Clin Para Para Para Last Filed Vital Signs Vital Sign Reading Time Taken Comments Blood Pressure 144/92 01/05/2018 9:12 AM EST Pulse 56 01/05/2018 9:12 AM EST Temperature 37.1 C (98.8 F) 12/04/2017 8:00 AM EDT Respiratory Rate 15 12/04/2017 2:00 PM EDT Oxygen Saturation 98% 01/05/2018 9:12 AM EST Inhaled Oxygen Concentration - - Weight 53.5 kg (118 lb) 01/05/2018 9:12 AM EST Height 157.5 cm (5' 2 ) 01/05/2018 9:12 AM EST Body Mass Index 21.58 01/05/2018 9:12 AM EST Plan of Treatment Health Maintenance Due Date Last Done Comments Wellness Exam Medicare 01/17/1948 Hepatitis C Screening 1963 DTaP/TDaP/Td (1 - Tdap) 01/17/1964 Pneumococcal Vaccine 50+ (1 of 1 - PCV) 1995 Zoster (1 of 2) 1995 Bone Density Screening 2010 RSV or 60+ (1 - 1-d ose 75+ series) 01/17/2020 COVID-19 Vaccine (1 - 2023-2 5 season) 2023 Influenza Vaccine (#1) 2024 Hepatitis B Vaccine Aged Out No longe r eligible based on patient's age to complete this topic Meningococcal B Vaccine Aged Out No l onger eligible based on patient's age to complete this topic Insurance MEDICARE [place] [address] [place] [address] SUPPLEMENTAL [facility] SUPPLEMENTAL MEDICARE [place] PART A AND B Care Teams Census Enumerator Relationship Specialty Start Date End Date Gabino Koo MD [address] [facility] [address] [place] [id number] PCP - General Internal Medicine-Adolescent Medicine 11/09/17 Joel Man PA-C [address] [facility] [address] [place] [id number] Physician Vending Machine Attendant 11/09/17
--- OUTSIDE RECORDS SUMMARY | 2024-10-01 10:46 | XMS_ITS | Clinical Summary ---
Author Organization [facility] Address [address] [place] [address] Care Team Providers Care Watch Crystal Molder Name Role Phone Erica Vaughn APRN Primary Care Provid er Allergies Active Allergy Reactions Criticality Noted Date Comments Clopidogrel Bisulfate Rash Low 03/30/2018 SOB as well Medications metoprolol tartrate (LOPRESSOR) 100 MG tablet Take 100 mg by mouth 2 (Two) Times a Day. Active losartan (COZAAR) 50 MG tablet Take 50 mg by mouth Daily. Active anastrozole (ARIMIDEX) 1 MG tablet Take 1 mg by mouth Daily. Active escitalopram (LEXAPRO) 5 MG tablet Take 5 mg by mouth Daily. Active pantoprazole (PROTONIX) 40 MG EC tablet Take 40 mg by mouth Daily. Active cetirizine (zyrTEC) 10 MG tablet Take 10 mg by mouth Daily. Active rivaroxaban (XARELTO) 20 MG tablet Take 20 mg by mouth Daily. Active rosuvastatin (CRESTOR) 40 MG tablet Take 40 mg by mouth Daily. Active calcium carbonate (OS-GREG) 600 MG tablet Take 600 mg by mouth Daily. Active Multiple Vitamins-Mineral s (MULTIVITAMIN WITH MINERALS) tablet tablet Take 1 tablet by mouth Daily. Active Multiple Vitamins-Mineral s (ICAPS AREDS FORMULA PO) Take 1 tablet by mouth Daily. Active Active Problems Problem Noted Date Diagnosed Date Breast cancer 03/30/2018 Overview (03/30/2018): left with radiation 1994 and 2012 PAF (paroxysmal atrial fibrillation) 03/30/2018 Typical atrial flutter 03/30/2018 Essential hypertension 03/30/2018 Gastroesophageal reflux disease without esophagi tis 03/30/2018 Mixed hyperlipidemia 03/30/2018 Coronary artery disease invo lving ramona coronary artery of ramona heart without angina pectoris 03/30/2018 Overview (03/30/2018): [facility] September 2017: mild to moderate nonobstructive disease SOBIA on CPAP 03/30/2018 Family History Medical History Relation Name Comments Heart attack Father Heart disease Father CABG Heart attack Maternal Aunt Heart attack Mother Heart attack Paternal Aunt Stroke Sister 1 Aneurysm Sister 2 Other Sister 3 lung transplant Breast cancer Neg Hx Ovarian cancer Neg Hx Relation Name Status Comments Father Maternal Aunt Mother Paternal Aunt Sister 1 Sister 2 Sister 3 Social History Tobacco Use Types Packs/Day Years Used Date Smoking Tobacco: Former Cigarettes 0.1 15 1 - 1996 Smokeless Tobacco: Never Tobacco Cessation:Counseling Given: Yes Alcohol Use Standard Drinks/Week Comments Yes 0 (1 standard drink = 0.6 oz pur e alcohol) ocasional Humiliation, Afraid, Rape, and Kick questionnair e Answer Date Recorded Fear of Current or Ex-Partner No Emotionally Abused No 03/30/2018 Physically Abused No 03/30/2018 Sexually Abused No 03/30/2018 Social Connection and Isolat ion Panel [NHANES] Answer Date Recorded Frequency of Communication w ith Friends and Family More than three times a week 03/30/2018 Frequency of Social Gatherin gs with Friends and Family Not on file 03/30/2018 Attends Druze Services More than 4 times per year 03/30/2018 Active Member of Clubs or Organizations Yes 03/30/2018 Attends Club or Organization Meetings More than 4 times per year 03/30/2018 Marital Status 03/30/2018 Overall Financial Resource Strain (CARDIA) Answe r Date Recorded Difficulty of Paying Living Expenses Not hard at all 03/30/2018 [facility] [place] [facility] ional [facility] - Occupational Stress Questionnaire Answer Date Recorded Feeling of Stress To some extent 03/30/2018 Exercise Vital Sign Answer Date Recorde d Days of Exercise per Week 0 days 2018 Minutes of Exercise per Session 0 min 03/30/2018 Hunger Vital Sign Answer Date Recorded Worried About Running Out of Food in the Last Ye ar Never true 03/30/2018 Ran Out of Food in the Last Year Never true 03/30/2018 PRAPARE - Transportation Answer Date Re corded Lack of Transportation (Medical) No 03/30/2018 Lack of Transportation (Non-Medical) No 03/30/2018 Comments No Sex and Gender Information Value Date Recorded Sex Assigned at Not on file Legal Sex Female 10:12 AM EDT Gender Identity Not on file Sexual Orientation Not on file Occupation Industry Job Start Date Job End Date Retired Not on file Not on file Not on file Last Filed Vital Signs Vital Sign Reading Time Taken Comments Blood Pressure 142/82 03/30/2018 10:34 AM EST Pulse 62 03/30/2018 10:34 AM EST Temperature 36.5 C (97.7 F) 03/30/2018 10:05 AM EST Respiratory Rate - - Oxygen Saturation 99% 03/30/2018 10:05 AM EST RA Inhaled Oxygen Concentration - - Weight 51.7 kg (114 lb) 04/07/2023 9:28 AM EST Height 154.9 cm (5' 1 ) 04/07/2023 9:28 AM EST Body Mass Index 21.54 04/07/2023 9:28 AM EST Plan of Treatment Health Maintenance Due Date Last Done Comments DXA SCAN 1945 LIPID PANEL 1945 ANNUAL WELLNESS VISIT 03/30/2018 HEPATITIS C SCREENING 03/30/2018 RSV Vaccine - Adults (1 - 1- dose 75+ series) 01/17/2020 COVID-19 Vaccine ( - 2023-2 5 season) 2023 12/29/2021, 07/12/2021, 12/09/2020, Additional history exists INFLUENZA VACCINE 11/20/2024 11/06/2023, , 02/17/2021, Additional history exists TDAP/TD VACCINES (4 - Td or Tdap) 08/01/2033 08/02/2023, 10/06/2022, 04/23/1996 ZOSTER VACCINE Completed 07/03/2020, 03/09/2020 Pneumococcal Vaccine 50+ Completed 10/06/2022, 09/21 MAMMOGRAM Discontinued 06/13/2024, 01/21, 08/08/2022, Additional history exists Procedures Procedure Name Priority Date/Time Associated Diagnosis Comments MAMMO SCREENING DIGITAL TOMOSYNTHESIS BILATERAL W CAD Routine 06/13/2024 11:23 AM EDT Encounter for screening mammogram for malignant neoplasm of breast from Last 3 Months or Most Recently Relevant to Health Maintenance Results * Mammo Screening Digital Tomosynthesis Bilateral With CAD (06/13/2024 11:23 AM EDT) Anatomical Region Laterality Modality Breast N/A Mammography 06/19/2024 11:4 2 AM EDT Impressions 06/19/2024 11:42 AM EDT Benign screening mammogram. RECOMMENDATION: Continue annual screening mammography. Consideration for annual breast MRI is recommended. The patient's last breast MRI was in March 2023 BI-RADS CATEGORY 2, BENIGN. CAD was utilized. The standard false-negative rate of mammography is between 10% and 25%. Complex patterns or increased breast density will markedly elevate the false-negative rate of mammography. A letter, in lay terminology, with the results of this exam will be mailed to the patient. 06/19/2024 11:[address] Shahrzad Mccall MD on Narrative 06/19/2024 11:42 AM EDT DIGITAL SCREENING MAMMOGRAM WITH TOMOSYNTHESIS HISTORY: Screening Mammography. Low dose full field digital breast tomosynthesis imaging was performed with 2D and 3D acquisitions consisting of bilateral CC and MLO views. Examination is compared to prior examination dating back to 11/06/2018. Examination is read in conjunction with computer aided detection. FINDINGS: The breasts are extremely dense, which lowers the sensitivity of mammography. No suspicious masses, microcalcifications or areas of architectural distortion are identified. Changes consistent with left breast conservation therapy are stable. Erica Vaughn APRN IM M[facility]MOGRAP[facility] Final Result from Last 3 Months or Most Recently Relevant to Health Maintenance Insurance MEDICARE A & B Member Subscriber Plan / Payer (Ef fective 2009-Present) Name:Blaire Aguilar V Member ID:[id number] Relation to Subscriber:Self Name:Blaire Aguilar V Subscriber ID:[id number] Payer ID:[id number] Group ID:Not on file Type:Not on file Address: [facility] [id number] [address] [employer] Member Subscriber Plan / Payer (Ef fective 2015-Present) Name:Blaire Aguilar [place] Relation to Subscriber:Self Name:Blaire Aguilar V Payer ID:[id number] Group ID:Not on file Type:MEDICARE SUPPLEMENT Address: [facility] [address] [place] [id number] Care Teams Watch Crystal Molder Relationship Specialty Start Date End Date Erica Vaughn APRN [address] [facility] [address] [place] [id number] PCP - General Family Medicine 11/28/22
[2024-10-01 11:02] LABS: Hematocrit 40.8 % (37.0-47.0); Hemoglobin 13.3 g/dL (12.2-16.2); Immature Granulocytes % 0.3 %; Mean Corpuscular HGB Conc 32.6 g/dL (31.8-35.4); Mean Corpuscular Hemoglobin 29.4 pg (27.0-31.2); Mean Corpuscular Volume 90.3 fl (81-99); Nucleated Red Blood Cells % 0 %; Platelet Count 161 K/mm3 (142-424); Red Blood Count 4.52 M/mm3 (4.20-5.40); Red Cell Distribution Width-SD 39.8 fL; White Blood Count 4.0 K/mm3 (4.8-10.8)
[2024-10-01 11:27] LABS: Alanine Aminotransferase 22 U/L (12-78); Albumin Level 4.5 g/dl (3.5-5.0); Alkaline Phosphatase 46 U/L (38-126); Anion Gap 10.8 mEq/L (5-15); Aspartate Amino Transferase 33 U/L (14-36); Bilirubin,Direct 0.0 mg/dl (0.0-0.4); Bilirubin,Indirect 0.8 mg/dL (0.0-0.9); Bilirubin,Total 0.8 mg/dl (0.2-1.3); Bilirubin,Unconjugated 0.9 mg/dL (0.0-1.1); Blood Urea Nitrogen 18 mg/dl (7-17); Calcium 9.4 mg/dl (8.4-10.2); Carbon Dioxide 29 mmol/L (22.0-30.0); Chloride 102 mmol/L (98-107); Cholesterol 155 mg/dl (140-200); Creatinine,Serum 0.50 mg/dl (0.52-1.04); Estimated Glomerular Filt Rate 119 ml/min (>60); GFR (African American) 144 ML/MIN (>60); Glucose 106 mg/dl (74-100); HDL Cholesterol 50 mg/dl (40-60); Magnesium 1.8 mg/dl (1.6-2.3); Potassium 3.8 mmoL/L (3.5-5.1); Sodium 138 mmol/L (136-145); Total Protein,Serum 6.7 g/dl (6.3-8.2); Triglycerides 115 mg/dl (30-150)
[2024-10-01 11:43] LABS: Free T4 (Free Thyroxine) 0.87 ng/dl (0.78-2.19)
[2024-10-01 11:58] LABS: Thyroid Stimulating Hormone 2.62 uIU/mL (0.465-4.68)
== END 2024-10-01 23:59 | disposition home or self-care (01) ==
LOC: LAB 10:33
PROVIDERS: PCP Nurse Practitioner Family; Visit Provider Nurse Practitioner
DX: I25.10 Atherosclerotic heart disease of native coronary artery without angina pectoris (principal); I10 Essential (primary) hypertension
CPT/HCPCS: 36415; 80048; 80061; 80076; 83735; 84439; 84443; 85025